=== PATIENT | male | born 1965 | race Caucasian/White ===

== ENCOUNTER 2023-07-03 04:47 | Day surgery (SDC) | payer OTHER ==
[2023-06-16 12:56] VITALS: BMI 25.8
[2023-07-03 08:36] VITALS: TEMP 97.3
[2023-07-03 09:32] VITALS: BP 110/72; PULSE 75; RESP 20
== END 2023-07-03 09:17 | disposition home or self-care (01) ==
LOC: JASU-ENDO 04:47
PROVIDERS: ATTEND Student in an Organized Health Care Education/Training Program
PROC: 0DJD8ZZ Inspection of Lower Intestinal Tract, Via Natural or Artificial Opening Endoscopic (ICD-10-PCS; principal; 2023-07-03 08:00)
DX: Z12.11 Encounter for screening for malignant neoplasm of colon (principal); K64.8 Other hemorrhoids